=== PATIENT | female | born 1950 | race Caucasian/White ===

== ENCOUNTER 2021-01-28 02:59 | Emergency (ER) | payer MEDICARE, BC ==
[2021-01-28] MEDS: Sodium Chloride 0.9% 10 ML Syringe FLUSH PRN ×3 (03:10→05:16)
[2021-01-28] MEDS: Nitroglycerin 0.4 MG Tab.SL SL PRN ×3 (03:29→03:45)
[2021-01-28 03:31] VITALS: PULSE 78
[2021-01-28] MEDS ORDERED: Aspirin 81 MG Tab.Chew PO STA (03:38)
--- NOTE | 2021-01-28 03:43 | EDM.PDOC ---
ED HPI GENERAL MEDICAL PROBLEM - General Chief Complaint: Chest Pain Stated Complaint: CHEST PAINS Time Seen by Provider: 01/28/21 03:15 Source of Information: Reports: Patient History Limitations: Reports: No Limitations - History of Present Illness INITIAL COMMENTS - FREE TEXT/NARRATIVE: Patient presented to the ED because of Chest pressure which started at 2 am. It woke her up from her sleep and she rate her pain 9/10, radiating to both shoulders. There is no associated fever,chills,cough or cold but c/o dyspnea. The pain is similar to the chest pain that she had 5 years ago when she had a NSTEMI with stent placement. Chest Pain Score (Numeric/FACES): 9 - Related Data Allergies Allergy/AdvReac Type Severity Reaction Status Date / Time alcohol Allergy Cannot Verified 01/28/21 03:27 Remember codeine Allergy Bradycardia Verified 01/28/21 03:58 Iodinated Contrast Media Allergy Vomiting Verified 01/28/21 05:07 meperidine Allergy Bradycardia Verified 01/28/21 03:58 Penicillins Allergy Difficulty Verified 01/28/21 03:58 Breathing Home Meds: Home Meds metFORMIN [Glucophage] 1,000 mg PO BIDM 05/13/14 [History] Escitalopram [Lexapro] 10 mg PO DAILY 01/28/21 [History] Glimepiride 4 mg PO DAILY 01/28/21 [History] Metoprolol Tartrate 12.5 mg PO BID 01/28/21 [History] SitaGLIPtin [Januvia] 100 mg PO DAILY 01/28/21 [History] atorvaSTATin [Lipitor] 40 mg PO DAILY 01/28/21 [History] Social & Family History - Tobacco Use Tobacco Use Status *Q: Never Tobacco User - Caffeine Use Caffeine Use: Reports: Coffee, Soda, Tea - Recreational Drug Use Recreational Drug Use: No - Living Situation & Occupation Living situation: Reports: Other ED ROS GENERAL - Review of Systems Review Of Systems: See Below Constitutional: Reports: No Symptoms HEENT: Reports: No Symptoms Respiratory: Reports: Shortness of Breath Cardiovascular: Reports: Chest Pain Endocrine: Reports: No Symptoms GI/Abdominal: Reports: No Symptoms : Reports: No Symptoms Musculoskeletal: Reports: No Symptoms Skin: Reports: No Symptoms Neurological: Reports: No Symptoms Psychiatric: Reports: No Symptoms Hematologic/Lymphatic: Reports: No Symptoms ED EXAM, GENERAL - Physical Exam Exam: See Below Exam Limited By: No Limitations General Appearance: Alert, No Apparent Distress Eye Exam: Bilateral Eye: PERRL Ears: Normal External Exam, Normal Canal Nose: Normal Inspection, Normal Mucosa, No Blood Throat/Mouth: Normal Inspection, Normal Lips, Normal Teeth Head: Atraumatic, Normocephalic Neck: Normal Inspection, Supple, Non-Tender, Full Range of Motion Respiratory/Chest: No Respiratory Distress, Lungs Clear, Normal Breath Sounds, No Accessory Muscle Use, Chest Non-Tender Cardiovascular: Normal Peripheral Pulses, Regular Rate, Rhythm, No Edema, No Gallop, No JVD, No Murmur, No Rub GI/Abdominal: Normal Bowel Sounds, Soft, Non-Tender, No Organomegaly, No Distention, No Abnormal Bruit, No Mass Extremities: Normal Inspection, Normal Range of Motion, Non-Tender #1 Interpretation EKG Date: 01/28/21 Time: 02:57 Rhythm: NSR Rate (Beats/Min): 77 [place]: Other ([facility]) P-Wave: Present QRS: Normal ST-T: Normal QT: Normal VA/PQ Interval: 165 EKG Interpretation Comments: NSR LAFB Course - Vital Signs Text/Narrative:: Lab/EKG/CXR result was reviewed and discussed with patient and her friend ASA 324 mg PO x1 NTG 0.4 mg SL x 3 Toradol 15 mg IV x1 Ativan 1 mg PO x1 Fentanyl 50 mcg IV x1 Ativan 1 mg PO x1 Last Recorded V/S: Last Vital Signs Temp 36.8 C 01/28/21 03:00 Pulse 78 01/28/21 03:00 Resp 17 01/28/21 03:00 BP 129/75 01/28/21 03:45 Pulse Ox 98 01/28/21 03:00 - Orders/Labs/Meds Orders: Active Orders 24 hr Category Date Time Status Saline Lock Insert [OM.PC] Routine Oth 01/28/21 03:29 Ordered EKG 12 Lead [EK] Routine Ther 01/28/21 03:29 Ordered Labs: Laboratory Tests 01/28/21 01/28/21 01/28/21 Range/Units 03:44 03:44 03:44 WBC 5.9 (3.0-10.3) x10-3/uL RBC 3.77 (3.60-5.20) x10(6)uL Hgb 11.3 L (11.4-15.5) g/dL Hct 34.1 L (34.2-48.2) % MCV 90.5 (76.7-100.5) fL MCH 29.9 (23.9-33.9) pg MCHC 33.0 (31.9-34.8) g/dL RDW 13.5 (12.3-16.5) % Plt Count 185 (151-488) x10(3)uL MPV 7.5 (7.1-12.4) fL Neut % (Auto) 64.3 (30.8-76.2) % Lymph % (Auto) 25.7 (18.4-52.1) % [place] % (Auto) 7.7 (4.4-15.7) % Eos % (Auto) 1.9 (0.6-8.1) % Baso % (Auto) 0.4 (0.2-1.5) % Neut # (Auto) 3.8 (1.5-6.3) x10-3/uL Lymph # (Auto) 1.5 (1.0-4.4) x10-3/uL [place] # (Auto) 0.5 (0.3-1.0) x10-3/uL Eos # (Auto) 0.1 (0.0-0.8) x10-3/uL Baso # (Auto) 0.0 (0.0-0.1) x10-3/uL PT 10.0 (9.0-11.1) sec INR 0.93 L (1.00-1.24) APTT 22.3 L (24.4-33.2) SECONDS D-Dimer, Quantitative (0.0-0.59) mg/LFEU Sodium 141 (135-145) mmol/L Potassium 3.9 (3.5-5.3) mmol/L Chloride 104 (100-110) mmol/L Carbon Dioxide 24 (21-32) mmol/L BUN 19 H (7-18) mg/dL Creatinine 1.3 H (0.55-1.02) mg/dL Est Cr Clr Drug Dosing 37.27 mL/min Estimated GFR (MDRD) 41 L (>60) BUN/Creatinine Ratio 14.6 (9-20) Glucose 142 H (80-116) mg/dL Calcium 8.7 (8.6-10.2) mg/dL Total Bilirubin 0.4 (0.1-1.3) mg/dL AST 14 (5-25) IU/L ALT 14 (12-36) U/L Alkaline Phosphatase 113 H (56-112) IU/L Troponin I (4.0-60.3) pg/mL NT-Pro-B Natriuret Pep (<=125) pg/mL Total Protein 7.1 (6.0-8.0) g/dL Albumin 3.4 (3.2-4.6) g/dL Globulin 3.7 g/dL Albumin/Globulin Ratio 0.9 01/28/21 01/28/21 Range/Units 03:44 03:44 WBC (3.0-10.3) x10-3/uL RBC (3.60-5.20) x10(6)uL Hgb (11.4-15.5) g/dL Hct (34.2-48.2) % MCV (76.7-100.5) fL MCH (23.9-33.9) pg MCHC (31.9-34.8) g/dL RDW (12.3-16.5) % Plt Count (151-488) x10(3)uL MPV (7.1-12.4) fL Neut % (Auto) (30.8-76.2) % Lymph % (Auto) (18.4-52.1) % [place] % (Auto) (4.4-15.7) % Eos % (Auto) (0.6-8.1) % Baso % (Auto) (0.2-1.5) % Neut # (Auto) (1.5-6.3) x10-3/uL Lymph # (Auto) (1.0-4.4) x10-3/uL [place] # (Auto) (0.3-1.0) x10-3/uL Eos # (Auto) (0.0-0.8) x10-3/uL Baso # (Auto) (0.0-0.1) x10-3/uL PT (9.0-11.1) sec INR (1.00-1.24) APTT (24.4-33.2) SECONDS D-Dimer, Quantitative 1.98 H (0.0-0.59) mg/LFEU Sodium (135-145) mmol/L Potassium (3.5-5.3) mmol/L Chloride (100-110) mmol/L Carbon Dioxide (21-32) mmol/L BUN (7-18) mg/dL Creatinine (0.55-1.02) mg/dL Est Cr Clr Drug Dosing mL/min Estimated GFR (MDRD) (>60) BUN/Creatinine Ratio (9-20) Glucose (80-116) mg/dL Calcium (8.6-10.2) mg/dL Total Bilirubin (0.1-1.3) mg/dL AST (5-25) IU/L ALT (12-36) U/L Alkaline Phosphatase (56-112) IU/L Troponin I 5.5 (4.0-60.3) pg/mL NT-Pro-B Natriuret Pep 140 H (<=125) pg/mL Total Protein (6.0-8.0) g/dL Albumin (3.2-4.6) g/dL Globulin g/dL Albumin/Globulin Ratio Meds: Medications Discontinued Medications Generic Name Dose Route Start Last Admin Trade Name Freq PRN Reason Stop Dose Admin Aspirin 324 mg 01/28/21 03:38 01/28/21 03:14 Aspirin 81 Mg Tab.Chew PO 01/28/21 03:39 324 mg NOW STA Administration Fentanyl 50 mcg 01/28/21 03:58 01/28/21 04:02 Fentanyl 100 Mcg/2 Ml Sdv IVPUSH 01/28/21 03:59 50 mcg NOW STA Administration Ketorolac Tromethamine 15 mg 01/28/21 05:11 01/28/21 05:15 Ketorolac 30 Mg/Ml Sdv IVPUSH 01/28/21 05:12 15 mg ONETIME ONE Administration Lorazepam 1 mg 01/28/21 05:11 01/28/21 05:16 Lorazepam 1 Mg Tab PO 01/28/21 05:12 1 mg ONETIME ONE Administration Nitroglycerin 0.4 mg 01/28/21 03:32 01/28/21 03:45 Nitroglycerin 0.4 Mg Tab.Sl SL 0.4 mg Q5M PRN Administration Chest Pain Sodium Chloride 10 ml 01/28/21 03:29 01/28/21 05:16 Sodium Chloride 0.9% 10 Ml Syringe FLUSH 10 ml ASDIRECTED PRN Administration Keep Vein Open Departure - Departure Time of Disposition: 05:30 Disposition: Home, Self-Care 01 Condition: Good Clinical Impression: Chest pain Instructions: Nonspecific Chest Pain, Adult, [id number] Referrals: Paxton Ibanez MD [Primary Care Provider] - Forms: ED Department Discharge Additional Instructions: Please read discharge instructions on non-specific chest pain Take ibuprofen 600 mg with tylenol 500 mg every 6 hours as needed for pain Follow up as needed Sepsis Event Note (ED) - Evaluation Sepsis Screening Result: No Definite Risk - Focused Exam Vital Signs: Vital Signs BP 01/28/21 03:45 129/75 01/28/21 03:37 129/75 01/28/21 03:29 154/86 H - My Orders Last 24 Hours: My Active Orders 01/28/21 03:29 Saline Lock Insert [OM.PC] Routine EKG 12 Lead [EK] Routine - Assessment/Plan Last 24 Hours: My Active Orders 01/28/21 03:29 Saline Lock Insert [OM.PC] Routine EKG 12 Lead [EK] Routine
[2021-01-28 03:52] VITALS: BP 129/75
[2021-01-28] MEDS ORDERED: fentaNYL 100 MCG/2 ML SDV IVPUSH STA (03:58)
[2021-01-28] MEDS ORDERED: Ketorolac 30 MG/ML SDV IVPUSH ONE (05:11)
[2021-01-28] MEDS ORDERED: LORazepam 1 MG Tab PO ONE (05:11)
--- NOTE | 2021-01-28 10:35 | CR ---
INDICATION: Chest pain. CHEST ONE VIEW: Portable AP upright view of the chest 01/28/21 was compared with 06/08/13 AP chest and revealed the heart to be normal in size and shape as visualized. The aorta is tortuous with minimal calcification in the arch. Overlying EKG leads are noted. A definite active infiltrate or effusion was not identified with markings similar to the previous study. IMPRESSION: No acute process. MTDD
== END 2021-01-28 05:30 | disposition home or self-care (01) ==
LOC: FB.ED 02:59
DX: R07.89 Other chest pain (principal); Z88.0 Allergy status to penicillin; Z88.1 Allergy status to other antibiotic agents; Z91.048 Other nonmedicinal substance allergy status; Z91.041 Radiographic dye allergy status; Z79.899 Other long term (current) drug therapy; Z79.84 Long term (current) use of oral hypoglycemic drugs
CPT/HCPCS: 36415; 71045; 80053; 83880; 84484; 85025; 85379; 85610; 85730; 93005; 96374; 96375; 99285; A9270; J1885; J3010

== ENCOUNTER 2025-02-12 16:14 | Emergency (ER) | payer MEDICARE, BC ==
[2025-02-12] MEDS ORDERED: Sodium Chloride 0.9% 10 ML Syringe FLUSH PRN (16:18)
[2025-02-12 16:38] LABS: BASOPHILS ABSOLUTE AUTO 0.0 x10-3/uL (0.0-0.1); BASOPHILS PERCENT AUTO 0.2 % (0.2-1.5); EOSINOPHILS ABSOLUTE AUTO 0.1 x10-3/uL (0.0-0.8); EOSINOPHILS PERCENT AUTO 1.0 % (0.6-8.1); LYMPHOCYTES ABSOLUTE AUTO 1.3 x10-3/uL (1.0-4.4); LYMPHOCYTES PERCENT AUTO 18.8 % (18.4-52.1); MEAN PLATELET VOLUME 7.8 fL (7.1-12.4); MONOCYTES ABSOLUTE AUTO 0.5 x10-3/uL (0.3-1.0); MONOCYTES PERCENT AUTO 7.7 % (4.4-15.7); NEUTROPHILS ABSOLUTE AUTO 4.9 x10-3/uL (1.5-6.3); NEUTROPHILS PERCENT AUTO 72.3 % (30.8-76.2); PLATELET COUNT,PLT 126 x10(3)uL (151-488); RED BLOOD CELL COUNT 4.36 x10(6)uL (3.60-5.20); RED CELL DISTRIBUTION WIDTH 13.3 % (12.3-16.5); WHITE BLOOD CELL COUNT,WBC 6.8 x10-3/uL (3.0-10.3)
[2025-02-12 16:41] LABS: BLOOD UREA NITROGEN,BUN 18 mg/dL (7-18); CARBON DIOXIDE,CO2 27 mmol/L (21-32); CHLORIDE,CL 105 mmol/L (100-110); CREATININE 1.0 mg/dL (0.55-1.02); ESTIMATED GFR 60 mL/min (>60); GLUCOSE RANDOM 226 mg/dL (80-116); POTASSIUM,K 4.1 mmol/L (3.5-5.3); SODIUM,NA 142 mmol/L (135-145)
[2025-02-12 16:47] LABS: A/G RATIO 1.0; ALANINE AMINOTRANSFERASE,ALT 10 U/L (12-36); ASPARTATE AMNIOTRANSFERASE,AST 28 IU/L (5-25); BILIRUBIN TOTAL 0.5 mg/dL (0.1-1.3); PROTEIN TOTAL,TP 7.2 g/dL (6.0-8.0)
[2025-02-12 16:51] LABS: LACTIC ACID 2.2 mmol/L (0.4-2.0)
[2025-02-12 16:55] LABS: GLUCOSE,URINE >1000 mg/dL (NORMAL); OCCULT BLOOD,URINE MODERATE (NEGATIVE)
[2025-02-12] MEDS: Nitroglycerin 0.4 MG Tab.SL SL PRN (16:58)
[2025-02-12 17:11] LABS: APPEARANCE,URINE SLIGHTLY CLOUDY (CLEAR)
[2025-02-12 17:12] LABS: SQUAMOUS EPITHELIAL CELLS,UR FEW (NS,R,O)
[2025-02-12] MEDS: LORazepam 2 MG/ML SDV IVPUSH ONE (17:57)
[2025-02-12 18:07] LABS: INR 0.99 (1.00-1.24)
[2025-02-12 18:09] LABS: PTT,PARTIAL THROMBOPLSTIN TIME 23.3 SECONDS (24.4-33.2)
[2025-02-12] MEDS: Heparin Sodium 5,000 Units/ML Vial IVPUSH ONE (18:26)
[2025-02-12] MEDS: Heparin Sodium/0.45% NaCl 500 ML IV SCH (18:30)
[2025-02-12 19:11] VITALS: BP 104/68; PULSE 98
== END 2025-02-12 19:15 ==
LOC: FB.ED 16:14
DX: I21.4 Non-ST elevation (NSTEMI) myocardial infarction (principal); I10 Essential (primary) hypertension; E78.00 Pure hypercholesterolemia, unspecified; E11.9 Type 2 diabetes mellitus without complications; Z90.49 Acquired absence of other specified parts of digestive tract; Z90.710 Acquired absence of both cervix and uterus; Z88.0 Allergy status to penicillin; Z88.5 Allergy status to narcotic agent; Z88.8 Allergy status to other drugs, medicaments and biological substances; Z91.041 Radiographic dye allergy status; Z79.84 Long term (current) use of oral hypoglycemic drugs; Z79.899 Other long term (current) drug therapy
CPT/HCPCS: 36415; 71045; 80053; 81001; 83605; 83735; 84484; 85025; 85610; 85730; 86140; 93005; 93010; 96361; 96365; 96368; 96375; 99285; A9270; J1644; J2060; J2305; J7030